=== PATIENT | female | born 1945 | race Caucasian/White ===

== ENCOUNTER 2017-08-10 01:18 | Emergency (ER) | payer MEDICARE ==
[2017-08-10] MEDS ORDERED: SODIUM CHLORIDE 0.9% 1,000 ML IV STA (01:33)
--- NOTE | 2017-08-10 01:37 | ED ---
Abdominal Pain HPI - General Chief Complaint: Abdominal Pain Stated Complaint: abd pain Time Seen by Provider: 08/10/17 01:27 Source: patient, RN notes reviewed Mode of arrival: ambulatory Limitations: no limitations - History of Present Illness Initial Comments: This is a 71-year-old female who presents to the emergency department with chief complaint of constipation. Patient states that she has not had a bowel movement for about one week now. She states that she does still continue to pass gas. She states that she takes Metamucil and two probiotics daily. She states that she has tried MiraLAX and a Fleet enema yesterday and still has not had a bowel movement. She states that yesterday while standing at the kitchen sink she became very nauseous, she felt her temperature rise and she passed out. states that he witnessed this and that she was passed out for 10 seconds. Patient states that she came to and tried to have a bowel movement but was unable to do so. Patient denies any injuries or trauma. They state that patient had an episode of this 6 years ago when she was constipated. They state that the same thing happened, patient became nauseous and passed out. She was evaluated and all was normal besides the fact that patient was constipated. Patient denies any dizziness, headache, fevers or chills, chest pain or shortness of breath. She states that at 10 PM tonight she developed epigastric pain. She states that she thought she was going to be able to have a bowel movement but was still unable to. Last dose of MiraLAX was at midnight tonight. - Related Data Allergies Allergy/AdvReac Type Severity Reaction Status Date / Time No Known Allergies Allergy Verified 08/10/17 01:25 Review of Systems ROS Statement: Those systems with pertinent positive or pertinent negative responses have been documented in the HPI. ROS Other: All systems not noted in ROS Statement are negative. Past Medical History Past Medical History: GERD/Reflux, Hypertension History of Any Multi-Drug Resistant Organisms: None Reported Past Surgical History: No Surgical Hx Reported Past Psychological History: No Psychological Hx Reported Smoking Status: Never smoker Past Alcohol Use History: Daily Past Drug Use History: None Reported General Exam - General Exam Comments Initial Comments: General: Awake and alert, well-developed; in no apparent distress. is at bedside. Patient resting comfortably in the stretcher. Does not appear acutely ill. HEENT: Head atraumatic, normocephalic. Pupils are equal, round and reactive to light. Extraocular movements intact. Oropharynx moist without erythema or exudate. Neck: Supple. Normal ROM. Cardiovascular: Regular rate and rhythm. No murmurs, rubs or gallops. Chest symmetrical. Respiratory: Lungs clear to auscultation bilaterally. No wheezes, rales or rhonchi. Normal respiratory effort with no use of accessory muscles. Abdomen: Soft, non-tender, non-distended. No rigidity, rebound or guarding. Normal bowel sounds in all 4 quadrants. Musculoskeletal: Normal ROM, no tenderness bilateral upper and lower extremities. Skin: [place], warm and dry without rashes or lesions. Neurological: Alert and oriented x3. CN II-XII grossly intact. Speech is fluent and answers are appropriate. No focal neuro deficits. Psychiatric: Normal mood and affect. No overt signs of depression or anxiety noted. Limitations: no limitations Course Vital Signs 08/10/17 01:21 Temperature 98.6 F Pulse Rate 80 Respiratory 18 Rate Blood Pressure 164/81 O2 Sat by Pulse 100 Oximetry Medical Decision Making - Medical Decision Making This is a 71-year-old female who presented to the emergency department with chief complaint of constipation. Patient has been unable to have a bowel movement for about one week, she continues to pass gas. On physical examination , abdomen is soft and nontender. CBC and CMP are unremarkable. EKG revealed normal sinus rhythm. KUB revealed a nonacute abdomen. Patient was given a milk and molasses enema. She was able to pass stool. She states that her symptoms are improving. Vital signs are stable and she is in no acute distress. Patient will be discharged home at this time. Recommended taking MiraLAX and Colace daily. Patient is in agreement with plan and voices understanding. All questions answered. - Lab Data Result diagrams: 08/10/17 01:39 08/10/17 01:39 Lab Results 08/10/17 08/10/17 Range/Units 01:39 01:39 WBC 9.0 (3.8-10.6) k/uL RBC 4.36 (3.80-5.40) m/uL Hgb 13.3 (11.4-16.0) gm/dL Hct 39.4 (34.0-46.0) % MCV 90.4 (80.0-100.0) fL MCH 30.5 (25.0-35.0) pg MCHC 33.7 (31.0-37.0) g/dL RDW 12.6 (11.5-15.5) % Plt Count 372 (150-450) k/uL Neutrophils % 68 % Lymphocytes % 20 % Monocytes % 8 % Eosinophils % 2 % Basophils % 1 % Neutrophils # 6.1 (1.3-7.7) k/uL Lymphocytes # 1.8 (1.0-4.8) k/uL Monocytes # 0.7 (0-1.0) k/uL Eosinophils # 0.2 (0-0.7) k/uL Basophils # 0.0 (0-0.2) k/uL Sodium 141 (137-145) mmol/L Potassium 3.8 (3.5-5.1) mmol/L Chloride 100 (98-107) mmol/L Carbon Dioxide 27 (22-30) mmol/L Anion Gap 14 mmol/L BUN 22 H (7-17) mg/dL Creatinine 1.10 H (0.52-1.04) mg/dL Est GFR (CKD-EPI)AfAm 59 (>60 ml/min/1.73 sqM) Est GFR (CKD-EPI)NonAf 51 (>60 ml/min/1.73 sqM) Glucose 106 H (74-99) mg/dL Calcium 9.8 (8.4-10.2) mg/dL Total Bilirubin 0.3 (0.2-1.3) mg/dL AST 28 (14-36) U/L ALT 31 (9-52) U/L Alkaline Phosphatase 96 (38-126) U/L Total Protein 7.1 (6.3-8.2) g/dL Albumin 4.4 (3.5-5.0) g/dL Amylase 100 (30-110) U/L Lipase 136 (23-300) U/L - EKG Data EKG Comments: 1:47:06. Normal sinus rhythm. Normal ECG. Ventricular rate 67 bpm, OR interval 174, QRS duration 88, QT/QTc 426/450. No evidence of ST segment elevation or depression. - Radiology Data Radiology results: report reviewed, image reviewed X-ray KUB impression: Nonacute abdomen. Disposition Clinical Impression: Constipation Disposition: HOME SELF-CARE Condition: Good Instructions: Constipation (ED) Additional Instructions: Please take MiraLAX daily until stool is soft. Please follow up with primary care provider within 1-2 days. Return to emergency department if symptoms should worsen or any concerns arise. Is patient prescribed a controlled substance at d/c from ED?: No Referrals: Juan Jose Zayas MD [Primary Care Provider] - 1-2 days Time of Disposition: 03:10
[2017-08-10 01:51] LABS: Basophils % (A) 1 %; Eosinophils # (A) 0.2 k/uL (0-0.7); Eosinophils % (A) 2 %; HCT 39.4 % (34.0-46.0); HGB 13.3 gm/dL (11.4-16.0); Lymphocytes # (A) 1.8 k/uL (1.0-4.8); Lymphocytes % (A) 20 %; MCH 30.5 pg (25.0-35.0); MCHC 33.7 g/dL (31.0-37.0); MCV 90.4 fL (80.0-100.0); Mean Platelet Volume 6.8; Monocytes # (A) 0.7 k/uL (0-1.0); Monocytes % (A) 8 %; Neutrophils # (A) 6.1 k/uL (1.3-7.7); Neutrophils % (A) 68 %; Platelet Count 372 k/uL (150-450); RBC 4.36 m/uL (3.80-5.40); RDW 12.6 % (11.5-15.5)
[2017-08-10 01:57] LABS: Albumin 4.4 g/dL (3.5-5.0); Calcium 9.8 mg/dL (8.4-10.2); Potassium 3.8 mmol/L (3.5-5.1); Total Bilirubin 0.3 mg/dL (0.2-1.3); Total Protein 7.1 g/dL (6.3-8.2)
--- NOTE | 2017-08-10 02:11 | XR ---
EXAMINATION TYPE: XR KUB DATE OF EXAM: 08/10/2017 COMPARISON: NONE HISTORY: Abdominal pain TECHNIQUE: 2 views FINDINGS: There is no sign of intestinal obstruction or pneumoperitoneum. Fecal pattern is normal. Th ere is mild dextroscoliosis. Lung bases are clear. There are no pathologic calcifications over the ki dneys. IMPRESSION: Nonacute abdomen.
[2017-08-10 03:16] VITALS: BP 133/79; PULSE 77; RESP 18; TEMP 98
== END 2017-08-10 03:15 | disposition home or self-care (01) ==
LOC: EC 01:18
DX: K59.00 Constipation, unspecified (principal); R10.9 Unspecified abdominal pain; R11.0 Nausea
CPT/HCPCS: 36415; 74018; 80053; 82150; 83690; 85025; 93005; 96360; 99284

== ENCOUNTER 2017-10-20 21:27 | Emergency (ER) | payer MEDICARE ==
[2017-10-20 22:01] VITALS: BP 130/69; PULSE 78; RESP 18; TEMP 98.2
--- NOTE | 2017-10-20 23:23 | ED ---
General Adult HPI - General Chief complaint: ENT Stated complaint: Rt ear pain Source: patient Mode of arrival: ambulatory Limitations: no limitations - History of Present Illness Initial comments: Dictation was produced using [employer] dictation software. please excuse any grammatical, word or spelling errors. Chief Complaint: 72-year-old female with past medical history of GERD , dyslipidemia, hypertension presents with right ear pain. History of Present Illness: They patient is a history of impacted cerumen to the right external auditory canal. Denies any hearing loss. Denies any feelings of lightheadedness or vertiginous symptoms. Denies any neuromuscular deficits. Denies any fever, chills or night sweats. Patient reports that she is coming out of the cold. Please of mild hearing loss. The ROS documented in this emergency department record has been reviewed and confirmed by me. Those systems with pertinent positive or negative responses have been documented in the HPI. All other systems are other negative and/or noncontributory. - Related Data Allergies Allergy/AdvReac Type Severity Reaction Status Date / Time No Known Allergies Allergy Verified 10/20/17 22:01 Review of Systems ROS Statement: Those systems with pertinent positive or pertinent negative responses have been documented in the HPI. ROS Other: All systems not noted in ROS Statement are negative. Past Medical History Past Medical History: GERD/Reflux, Hyperlipidemia, Hypertension History of Any Multi-Drug Resistant Organisms: None Reported Past Surgical History: Bariatric Surgery, Hysterectomy Past Psychological History: No Psychological Hx Reported Smoking Status: Never smoker Past Alcohol Use History: Daily Past Drug Use History: None Reported General Exam - General Exam Comments Initial Comments: PHYSICAL EXAM: General Impression: Alert and oriented x3, not in acute distress HEENT: Normocephalic atraumatic, extra-ocular movements intact, pupils equal and reactive to light bilaterally, mucous membranes moist, impacted cerumen to the right external auditory canal, tympanic membrane does not show any posterior effusion Cardiovascular: Heart regular rate and rhythm, S1&S2 audible, no murmurs, rubs or gallops Chest: Lungs clear to auscultation bilaterally, no rhonchi, no wheeze, no rales Abdomen: Bowel sounds present, abdomen soft, non-tender, non-distended, no organomegaly Musculoskeletal: Pulses present and equal in all extremities, no peripheral edema Motor: Power 5/5 bilaterally, no focal deficits noted Neurological: CN II-XII grossly intact, no focal motor or sensory deficits noted Skin: Intact with no visualized rashes Psych: Normal affect and mood Limitations: no limitations Course Vital Signs 10/20/17 21:59 Temperature 98.2 F Pulse Rate 78 Respiratory 18 Rate Blood Pressure 130/69 O2 Sat by Pulse 98 Oximetry Medical Decision Making - Medical Decision Making ED course: Old female with multiple comorbidities presents with right ear pain. Physical examination positive for impacted cerumen to the right external auditory canal. I've are within acceptable limits making a disimpaction was performed using curette. TMs were within acceptable limits. No signs of otitis media. Patient reports improvement of symptoms after cerumen was removed. Patient told to take nasal sprays and antihistamines for cold symptoms. Patient told to follow-up with primary care physician upon discharge. Patient understandable agreeable to disposition. Disposition Clinical Impression: Ear pain Disposition: HOME SELF-CARE Condition: Good Instructions: Earache (ED) Is patient prescribed a controlled substance at d/c from ED?: No Referrals: Juan Jose Zayas MD [Primary Care Provider] - 1-2 days Time of Disposition: 23:23
== END 2017-10-20 23:33 | disposition home or self-care (01) ==
LOC: EC 21:27
DX: H61.21 Impacted cerumen, right ear (principal)
CPT/HCPCS: 69209; 99282

== ENCOUNTER → 2019-10-04 | Outpatient (CLI) | payer MEDICARE ==
--- NOTE | 2019-10-04 12:01 | NM ---
EXAMINATION TYPE: NM bone 3 phase DATE OF EXAM: 10/04/2019 COMPARISON: Outside radiographs left forefoot 09/22/2019 HISTORY: 74-year-old female with second toe left foot swelling and redness. History of remote trauma 7 years ago. Assess for osteomyelitis. Technique: Triple phase bone scintigraphy was performed following the injection of 17.3 mCi Tc 99m MD P. Immediate images and 3.5 hours post injection images acquired. Imaging centered at the bilateral distal lower extremities. FINDINGS: There is no abnormal activity involving the forefoot on either side on flow, pool, or delayed images. Delayed images show some focal activity at the left ankle and hindfoot likely degenerative. IMPRESSION: No scintigraphic evidence for osteomyelitis with particular attention to the left second toe.
== END | disposition home or self-care (01) ==
LOC: RADNMMAIN 07:25
PROVIDERS: ATTEND Podiatrist Foot & Ankle Surgery
DX: M86.172 Other acute osteomyelitis, left ankle and foot (principal)
CPT/HCPCS: 78315; A9503

== ENCOUNTER → 2023-12-03 | Outpatient (CLI) | payer MEDICARE ==
[2023-12-03 15:34] LABS: Basophils # (A) 0.06 X 10*3/uL (0.00-0.10); Eosinophils % (A) 3.2 %; HCT 34.1 % (37.2-46.3); HGB 11.5 g/dL (12.0-15.0); Lymphocytes # (A) 1.13 X 10*3/uL (0.90-5.00); Lymphocytes % (A) 18.1 %; MCH 30.4 pg (27.0-32.0); MCHC 33.7 g/dL (32.0-37.0); MCV 90.2 FL (80.0-97.0); Mean Platelet Volume 9.6 FL (9.5-12.2); Monocytes # (A) 0.96 X 10*3/uL (0.20-1.00); Monocytes % (A) 15.3 %; NRBC Per 100 WBC 0 X 10*3/uL (0.00-0.01); Neutrophils # (A) 3.89 X 10*3/uL (1.80-7.70); Neutrophils % (A) 62.1 %; Platelet Count 392 X 10*3/uL (140-440); RBC 3.78 X 10*6/uL (4.10-5.20); RDW 12.7 % (11.5-14.5); WBC 6.26 X 10*3/uL (4.50-10.00)
[2023-12-03 15:36] LABS: Blood Urea Nitrogen 21.9 mg/dL (9.0-27.0); Carbon Dioxide 22.6 mmol/L (21.6-31.8); Chloride 97 mmol/L (96-109); Potassium 4.5 mmol/L (3.5-5.5); Sodium 132 mmol/L (135-145)
== END | disposition home or self-care (01) ==
LOC: LABPAT 10:57
PROVIDERS: ATTEND Obstetrics & Gynecology
DX: Z01.818 Encounter for other preprocedural examination
CPT/HCPCS: 80051; 82565; 84520; 85025; 86850; 86900; 86901; 87086

== ENCOUNTER 2023-12-10 06:25 | Day surgery (SDC) | payer MEDICARE ==
[~2023-12-10 06:25] MED LIST: HYDROmorphone 0.5 MG/0.5 ML SYRINGE IVP PRN; LIDOCAINE 1% (10MG/ML) FOR IV START INTRADERMA PRN; MIDAZOLAM 2 MG/2 ML VIAL IV PRN; fentaNYL (PF) 50 MCG/ML 2 ML AMP IVP PRN
[2023-12-10] MEDS: IV FLUID CONTINUATION 1,000 ML IV ONE (07:09)
[2023-12-10] MEDS: LACTATED RINGERS 1,000 ML IV SCH (07:09)
[2023-12-10] MEDS: ONDANSETRON 4 MG/2 ML VIAL IVP ONE (07:28)
[2023-12-10] MEDS: DEXAMETHASONE SOD PHOSPHATE 4 MG/ML 1 ML VIAL IV ONE (07:29)
--- NOTE | 2023-12-10 08:18 | P.HPOB ---
History of Present Illness H&P Date: 12/10/23 Chief Complaint: Cystocele Ms. Pinto is a 78 year old who presents for surgical management of Grade 3 cystocele and Grade 1 rectocele on exam Past Medical History Past Medical History: GERD/Reflux, Hypertension, Osteoarthritis (OA) Additional Past Medical History / Comment(s): seasonal allergies History of Any Multi-Drug Resistant Organisms: None Reported Past Surgical History: Heart Catheterization, Hysterectomy Additional Past Surgical History / Comment(s): abdominoplasty Past Anesthesia/Blood Transfusion Reactions: No Reported Reaction Smoking Status: Never smoker - Past Family History Father Family Medical History: Cancer Additional Family Medical History / Comment(s): colon ca Mother Family Medical History: Cancer Additional Family Medical History / Comment(s): lung ca Medications and Allergies Home Medications Medication Instructions Recorded Confirmed Type Acetaminophen [Acetaminophen 8 hr] 650 mg PO BID 12/03/23 12/10/23 History Azelastine HCl [Astelin Nasal 1 spray EA NOSTRIL DAILY 12/03/23 12/10/23 History [place]] Famotidine [Pepcid] 20 mg PO DAILY 12/03/23 12/10/23 History Losartan/Hydrochlorothiazide 1 tab PO DAILY 12/03/23 12/10/23 History [Losartan-Hctz 100-25 mg Tab] Magnesium 1 dose PO DAILY 12/03/23 12/10/23 History Meloxicam [Mobic] 7.5 mg PO DAILY 12/03/23 12/10/23 History Simvastatin [Zocor] 20 mg PO HS 12/03/23 12/10/23 History amLODIPine BESYLATE 2.5 mg PO HS 12/03/23 12/10/23 History Allergies Allergy/AdvReac Type Severity Reaction Status Date / Time No Known Allergies Allergy Verified 12/10/23 06:49 Exam Vital Signs Temp Pulse Resp BP Pulse Ox 12/10/23 06:54 97.3 F L 64 16 188/74 95 Intake and Output 12/09/23 12/10/23 12/10/23 22:59 06:59 14:59 Other: Weight 79.7 kg Focused physical exam is performed. This is a healthy-appearing in no apparent distress. Breathing is non-labored. Abdomen is soft and non-tender. Extremities non-tender and non-edematous. Assessment and Plan Assessment: 78 year old with Grade 3 Cystocele and Grade 1 Rectocele presenting for surgical management Plan: Risks, benefits, and alternatives to Anterior Repair, Possible Posterior Repair are discussed with the patient including risk of bleeding, infection, damage to surrounding structures, and post-operative VTE. All questions are answered. Patient desires to proceed with the surgery as discussed.
[2023-12-10] MEDS ORDERED: PROPOFOL 10 MG/ML 20 ML VIAL IV ONE (08:36)
[2023-12-10] MEDS ORDERED: ePHEDrine 50 MG/ML 1 ML VIAL ONE (08:36)
[2023-12-10] MEDS ORDERED: fentaNYL (PF) 50 MCG/ML 2 ML AMP ONE (08:36)
[2023-12-10] MEDS ORDERED: LIDOCAINE 1% INJ 10MG/ML (20 ML MDV) ONE (08:36)
[2023-12-10] MEDS: VASOPRESSIN 20 UNIT/ML 1 ML VIAL SQ ONE (08:58)
[2023-12-10] MEDS: ESTRADIOL 0.1 MG/GM VAGINAL CREAM 42.5 GM TUBE VAGINAL ONE (09:08)
--- NOTE | 2023-12-10 10:21 | P.OP ---
Date of Procedure: 12/10/23 Preoperative Diagnosis: 1. Grade 3 Cystocele 2. Grade 1 Rectocele Postoperative Diagnosis: Same Procedure(s) Performed: Anterior Repair, Posterior Repair Implants: None Anesthesia: local Surgeon: Marie Lipscomb [employer] #1: Ivone Worthy Estimated Blood Loss (ml): 50 IV fluids (ml): 500 Urine output (ml): 250 Pathology: none sent Condition: stable Disposition: floor Indications for Procedure: Ms. Pinto is a 78 year old presenting for anterior and posterior repair for pelvic organ prolapse. The risks, benefits, and alternatives to surgery were discussed with the patient including risk of bleeding, infection, and damage to surrounding structures. All questions are answered. The patient wishes to proceed with surgery as discussed. Operative Findings: Grade 3 Cystocele, grade 1 rectocele Description of Procedure: Prior to the beginning of the procedure the team paused to verify the patient's identity, as well as the procedure to be performed and the correct side/site. All equipment required was ready and available. The patient was positioned appropriately. Patient was cleaned and draped and legs were placed in lithotomy position using Tj stirrups. Weiss catheter was placed to drain the bladder. A weighted speculum was placed in the posterior vaginal vault. Two Allis Clamps were used to grasp the vaginal mucosa along the vaginal cuff and Pitressin was injected inferior to the vaginal epithelium as a means for hydro-dissection. A horizontal incision was made in between the Allis clamps with the scalpel. A vertical midline incision was then made with Metzenbaum scissors from the level of the cuff to 1 cm inferior to the urethra. The underlying endopelvic fascia and cystocele was then dissected away from the vaginal epithelium using Metzenbaum scissors and allis clamps for retraction. The dissection was carried out to the lateral pelvic side wall on either side. 2-0 PDS was placed to approximate the endopelvic fascia over the cystocele, thus reducing it. Excess vaginal musosa was trimmed and the remaining vaginal mucosa was closed with 2-0 Vicryl suture. A posterior colporrhaphy was then performed by incising the posterior distal vaginal wall in a V-shape. The vaginal mucosa was injected with Pitressin. A vertical midline incision was made with the Metzenbaum scissors. The vaginal mucosa was then sharply and bluntly dissected off the underlying rectum. The rectovaginal fascia was approximated with 2-0 PDS suture in a purse- string fashion. 2-0 Vicryl was used to reapproximate the muscles int he perineal body The vaginal mucosa was then closed with 3-0 vicryl was used in a running fashion for skin closure. After completion of the case, a weiss catheter was inserted and noted to move freely into the urethra without tension. Clear urine was noted to drain from the catheter. Excellent hemostasis was noted at the end of the case. The vagina was packed with 1-inch iodoform packing coated in vaginal estrace cream. All instruments were removed from the patient. She was cleaned, dried, and awakened from anesthesia without difficulty. Sponge, lap, instrument, and needle counts were correct x2. She was taken to the PACU in stable condition.
[2023-12-10] MEDS ORDERED: SIMETHICONE 80 MG CHEWABLE PO PRN (10:22)
[2023-12-10] MEDS: ACETAMINOPHEN IV (For NPO) 1,000 MG in EMPTY BAG 1 BAG IVPB ONE (10:31)
[2023-12-10] MEDS: ONDANSETRON 4 MG/2 ML VIAL IVP PRN (11:21)
[2023-12-10] MEDS: IBUPROFEN 600 MG TAB PO PRN (15:56)
[2023-12-10] MEDS ORDERED: diphenhydrAMINE 50 MG CAP PO PRN (20:00)
[2023-12-10] MEDS: ACETAMINOPHEN TAB 325 MG TAB PO PRN (20:34)
[2023-12-11 05:42] VITALS: RESP 16
[2023-12-11 06:16] LABS: Basophils % (A) 0 %; Eosinophils % (A) 0 %; HCT 29.4 % (34.0-46.0); HGB 9.9 gm/dL (11.4-16.0); Lymphocytes # (A) 0.8 k/uL (1.0-4.8); Lymphocytes % (A) 6 %; MCH 31.1 pg (25.0-35.0); MCHC 33.6 g/dL (31.0-37.0); MCV 92.7 fL (80.0-100.0); Mean Platelet Volume 7.6; Monocytes # (A) 0.8 k/uL (0-1.0); Monocytes % (A) 6 %; Neutrophils # (A) 10.3 k/uL (1.3-7.7); Neutrophils % (A) 86 %; Platelet Count 355 k/uL (150-450); RBC 3.17 m/uL (3.80-5.40); RDW 12.1 % (11.5-15.5); WBC 11.9 k/uL (3.8-10.6)
[2023-12-11 08:35] VITALS: BP 126/69; PULSE 63; TEMP 98.1
[2023-12-11] MEDS ORDERED: ACETAMINOPHEN TAB 325 MG TAB PO PRN (10:23)
--- NOTE | 2023-12-11 11:09 | P.DS ---
Providers Date of admission: 12/10/2023 Expected date of discharge: 12/11/23 Attending physician: Marie Lipscomb MD Primary care physician: [facility] Course: Ms. Pinto is a 78 year old POD#1 s/p anterior and posterior colporrhaphy. The patient is doing well this morning and had no acute events overnight. She has no complaints this morning. She reports minimal vaginal spotting, passing flatus, voiding without difficulty, ambulating, and eating/drinking without nausea or vomiting. She denies chest pain, shortness of breathing, fevers, or chills overnight. She denies pain or swelling in the legs. Post-operative restrictions are reviewed with the patient including pelvic rest for 6 weeks, no lifting heavier than 15 pounds for 6 weeks. The patient is encouraged to call the office if she experiences any heavy bleeding, foul- smelling discharge, or any if she has any other concerns. She will follow up in the office with 2 weeks for postoperative exam. All questions are answered. Assessment: 78 year old POD#1 s/p anterior and posterior colporrhaphy Patient Condition at Discharge: Good Plan - Discharge Summary Discharge Rx Participant: No New Discharge Prescriptions: New Ferrous Sulfate [Iron (65 MG Elemental)] 325 mg PO DAILY #30 tab No Action Famotidine [Pepcid] 20 mg PO DAILY Azelastine HCl [Astelin Nasal [place]] 1 spray EA NOSTRIL DAILY Acetaminophen [Acetaminophen 8 hr] 650 mg PO BID Meloxicam [Mobic] 7.5 mg PO DAILY Magnesium 1 dose PO DAILY amLODIPine BESYLATE 2.5 mg PO HS Simvastatin [Zocor] 20 mg PO HS Losartan/Hydrochlorothiazide [Losartan-Hctz 100-25 mg Tab] 1 tab PO DAILY Discharge Medication List Acetaminophen [Acetaminophen 8 hr] 650 mg PO BID 12/03/23 [History] Azelastine HCl [Astelin Nasal [place]] 1 spray EA NOSTRIL DAILY 12/03/23 [History] Famotidine [Pepcid] 20 mg PO DAILY 12/03/23 [History] Losartan/Hydrochlorothiazide [Losartan-Hctz 100-25 mg Tab] 1 tab PO DAILY 12/03/23 [History] Magnesium 1 dose PO DAILY 12/03/23 [History] Meloxicam [Mobic] 7.5 mg PO DAILY 12/03/23 [History] Simvastatin [Zocor] 20 mg PO HS 12/03/23 [History] amLODIPine BESYLATE 2.5 mg PO HS 12/03/23 [History] Ferrous Sulfate [Iron (65 MG Elemental)] 325 mg PO DAILY #30 tab 12/11/23 [Rx] Follow up Appointment(s)/Referral(s): Marie Lipscomb MD [STAFF PHYSICIAN] - 12/24/23 1:30 pm Activity/Diet/Wound Care/Special Instructions: Postoperative Instructions 1. No heavy lifting or straining (exercising) until after 6 week checkup. 2. Do not resume sexual relations for 6 weeks or longer if uncomfortable. 3. Keep abdominal incision clean and dry: You may wear a dressing if more comfortable. 4. Keep any areas repaired with stitches clean and dry. 5. Call the office, , within the next week to make appointment for your 2 week checkup 6. Report any of the following occurrences to the doctor promptly: a. Heavy, excessive bleeding b. Chills, fever c. Burning or frequency of urination d. Pain or redness around the incisions Discharge Disposition: HOME SELF-CARE
== END 2023-12-11 11:15 | disposition home or self-care (01) ==
LOC: OR 06:25 → 4FBP 09:40 → OR 12-11 11:15
PROVIDERS: ATTEND Obstetrics & Gynecology
DX: N81.3 Complete uterovaginal prolapse (principal); K21.9 Gastro-esophageal reflux disease without esophagitis; I10 Essential (primary) hypertension; M19.90 Unspecified osteoarthritis, unspecified site; Z79.899 Other long term (current) drug therapy; Z90.710 Acquired absence of both cervix and uterus; Z80.0 Family history of malignant neoplasm of digestive organs; Z80.1 Family history of malignant neoplasm of trachea, bronchus and lung
CPT/HCPCS: 85025